=== PATIENT | female | born 2005 | race African-American/Black ===

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

== ENCOUNTER 2025-02-15 16:10 | Emergency (ER) | payer OTHER ==
[2025-02-15] MEDS ORDERED: Acetaminophen 325 MG TAB ONE (16:29)
== END 2025-02-15 17:45 | disposition home or self-care (01) ==
LOC: NAV ERS 16:10
DX: O98.513 Other viral diseases complicating pregnancy, third trimester (principal); J02.9 Acute pharyngitis, unspecified; B97.89 Other viral agents as the cause of diseases classified elsewhere; Z3A.29 29 weeks gestation of pregnancy
CPT/HCPCS: 87081; 87426; 87430; 99284